=== PATIENT | female | born 1970 | race African-American/Black ===

== ENCOUNTER 2024-10-09 03:17 | Emergency (ER) | payer OTHER, MEDICAID ==
[2024-10-09] MEDS ORDERED: Ipratropium/Albuterol 3 ML NEB ONE (03:53)
[2024-10-09 04:08] LABS: #Eosinophils 0.01 10x3/uL (0.0-0.5); #Monocytes 0.41 10x3/uL (0.0-1.1); #Neutrophils 2.14 10x3/uL (1.5-8.4); %Eosinophils 0.3 % (0.0-6.0); %Lymphocytes 33.4 % (18.0-47.0); %Monocytes 10.6 % (0.0-10.0); %Neutrophils 55.4 % (40.0-75.0); Hematocrit 35.5 % (34.9-44.5); Hemoglobin 11.2 g/dL (12.0-15.5); Mean Corpuscular HGB CONC 31.5 g/dL (32.0-36.0); Mean Corpuscular Volume 79.2 fL (81.6-98.3); Mean Platelet Volume 10.5 fL (7.4-10.4); Platelet Count 277 10x3/uL (150-450); RBC Distribution Width 16.5 % (11.5-14.5); Red Blood Cell (RBC) Count 4.48 10x6/uL (3.90-5.03); White Blood Cell (WBC) Count 3.9 10x3/uL (3.5-10.5)
[2024-10-09 04:16] LABS: ALT (SGPT) 12 U/L (8-55); AST (SGOT) 19 U/L (5-34); Albumin 2.5 g/dL (3.5-5.0); Alkaline Phosphatase 53 U/L (40-110); Anion Gap 12 mmol/L (10-20); BUN (Urea Nitrogen) 9 mg/dL (9.8-20.1); Bilirubin, Total 0.2 mg/dL (0.2-1.2); Calc. Creatinine Clearance 0 mL/min (70-130); Calcium 7.7 mg/dL (7.8-10.44); Carbon Dioxide 22 mmol/L (22-29); Chloride 109 mmol/L (98-107); Estimated GFR 77; Globulin 3.1 g/dL (2.4-3.5); Glucose 105 mg/dL (70-105); Potassium 3.9 mmol/L (3.5-5.1); Protein, Total 5.6 g/dL (6.0-8.3); Sodium 139 mmol/L (136-145)
[2024-10-09 04:22] LABS: Troponin I 0.014 ng/mL (< 0.028)
[2024-10-09 05:04] LABS: Bilirubin Neg (Negative); Blood, Urine 25 (Negative); Clarity Clear (Clear); Glucose, Urine (Dipstick) Normal (Negative); Ketone, Urine Negative (Negative); Leukocyte Negative (Negative); Nitrite Negative (Negative); Protein, Urine (Dipstick) Negative (Neg-Trace); Urobilinogen Normal mg/dL (Less than 2)
[2024-10-09 05:27] LABS: Bacteria/HPF Rare-Few HPF (None Seen); CAUTI Indications for Culture Fever or rigors; RBC/HPF 0-3 HPF (0-3); Squamous Epithelial 0-3 HPF (0-3); Urine Culture Reflex No No; WBC/HPF None Seen HPF (0-3)
[2024-10-09] MEDS ORDERED: Iopamidol 370 76% 100 ML VIAL ONE (11:21)
== END 2024-10-09 07:05 | disposition home or self-care (01) ==
LOC: CSHERS 03:17
DX: J44.1 Chronic obstructive pulmonary disease with (acute) exacerbation (principal); I10 Essential (primary) hypertension; F17.210 Nicotine dependence, cigarettes, uncomplicated; Z79.51 Long term (current) use of inhaled steroids
CPT/HCPCS: 71045; 71275; 80053; 81001; 83605; 84484; 85025; 85379; 87086; 93005; 93010; 94640; 94760; J7620; Q9967